=== PATIENT | female | born 1980 | race Caucasian/White ===

== ENCOUNTER 2016-07-19 09:24 | Day surgery (SDC) | payer BC ==
[~2016-07-19 09:24] MED LIST: Lactated Ringers 1,000 ML IV SCH; Lidocaine 1%/Sod Bicarbonate in NS 8.4% 1 ML Syringe IV PRN; Midazolam 1 MG/ML 2 ML SDV ONE; Ondansetron 4 MG/2 ML SDV ONE; Propofol 200 MG/20 ML SDV ONE; Rocuronium 50 MG/5 ML Vial ONE; Sodium Chloride 0.9% 10 ML Syringe FLUSH PRN; fentaNYL 250 MCG/5 ML SDV ONE
[2016-07-19] MEDS ORDERED: Lidocaine 1% with EPINEPHrine 1:100,000 20 ML MDV ONE (09:46)
[2016-07-19] MEDS ORDERED: Sodium Chloride 0.9% 50 ML SDV ONE (09:46)
[2016-07-19] MEDS ORDERED: Bupivacaine 0.5% 30 ML SDV ONE (09:46)
--- NOTE | 2016-07-19 10:08 | PCM.PREANE ---
Preanesthetic Assessment - Anesthesia/Transfusion/Family Hx Anesthesia History: Prior Anesthesia Without Reaction Family History of Anesthesia Reaction: No Transfusion History: No Prior Transfusion(s) - Review of Systems General: No Symptoms Pulmonary: No Symptoms Cardiovascular: No Symptoms Gastrointestinal: No symptoms Neurological: No Symptoms Other: Reports: None - Physical Assessment NPO Status Date: 07/18/16 NPO Status Time: 22:00 Pulse: 80 O2 Sat by Pulse Oximetry: 97 Respiratory Rate: 16 Blood Pressure: 123/50 Temperature: 97.1 F Height: 5 ft 1 in Weight: 103.374 kg ASA Class: 2 Mental Status: Alert & Oriented x3 Airway Class: Mallampati = 1 Dentition: Reports: Normal Dentition Thyro-Mental Finger Breadths: 3 Mouth Opening Finger Breadths: 3 ROM/Head Extension: Full Lungs: Clear to auscultation, Normal respiratory effort Cardiovascular: Regular Rate, Regular Rhythm, No Murmurs - Lab Values: Laboratory Last Values WBC 10.83 K/mm3 (3.98-10.04) H 07/18/16 15:32 RBC 4.66 M/mm3 (3.98-5.22) 07/18/16 15:32 Hgb 13.3 gm/L (11.2-15.7) 07/18/16 15:32 Hct 40.5 % (34.1-44.9) 07/18/16 15:32 MCV 86.9 fl (79.4-94.8) 07/18/16 15:32 MCH 28.5 pg (25.6-32.2) 07/18/16 15:32 MCHC 32.8 g/dl (32.2-35.5) 07/18/16 15:32 RDW Std Deviation 43.0 fL (36.4-46.3) 07/18/16 15:32 Plt Count 257 K/mm3 (182-369) 07/18/16 15:32 MPV 10.8 fl (9.4-12.3) 07/18/16 15:32 Sodium 140 mEq/L (136-145) 07/18/16 15:32 Potassium 3.4 mEq/L (3.5-5.1) L 07/18/16 15:32 Chloride 105 mEq/L (98-107) 07/18/16 15:32 Carbon Dioxide 26 mEq/L (21-32) 07/18/16 15:32 Anion Gap 12.4 (5-15) 07/18/16 15:32 BUN 13 mg/dL (7-18) 07/18/16 15:32 Creatinine 0.8 mg/dL (0.55-1.02) 07/18/16 15:32 Est Cr Clr Drug Dosing TNP 07/18/16 15:32 Estimated GFR (MDRD) > 60 mL/min (>60) 07/18/16 15:32 BUN/Creatinine Ratio 16.3 (14-18) 07/18/16 15:32 Glucose 138 mg/dL (74-106) H 07/18/16 15:32 Calcium 8.6 mg/dL (8.5-10.1) 07/18/16 15:32 Total Bilirubin 0.2 mg/dL (0.2-1.0) 07/18/16 15:32 AST 10 U/L (15-37) L 07/18/16 15:32 ALT 15 U/L (14-59) 07/18/16 15:32 Alkaline Phosphatase 83 U/L (46-116) 07/18/16 15:32 Total Protein 7.0 g/dl (6.4-8.2) 07/18/16 15:32 Albumin 3.5 g/dl (3.4-5.0) 07/18/16 15:32 Globulin 3.5 gm/dL 07/18/16 15:32 Albumin/Globulin Ratio 1.0 (1-2) 07/18/16 15:32 Urine Color Other (Yellow) H 07/18/16 15:32 Urine Appearance Slt cloudy (Clear) H 07/18/16 15:32 Urine pH 5.5 (5.0-8.0) 07/18/16 15:32 Ur Specific [place] > or = 1.030 (1.005-1.030) 07/18/16 15:32 Urine Protein Trace (Negative) H 07/18/16 15:32 Urine Glucose (UA) Negative (Negative) 07/18/16 15:32 Urine Ketones Negative (Negative) 07/18/16 15:32 Urine Occult Blood Trace-lysed (Negative) H 07/18/16 15:32 Urine Nitrite Negative (Negative) 07/18/16 15:32 Urine Bilirubin Negative (Negative) 07/18/16 15:32 Urine Urobilinogen 0.2 (0.2-1.0) 07/18/16 15:32 Ur Leukocyte Esterase 1+ (Negative) H 07/18/16 15:32 Urine HCG, Qual Negative (NEGATIVE) 07/18/16 15:32 Blood Type O NEGATIVE 07/18/16 15:32 Gel Antibody Screen Negative 07/18/16 15:32 - Blood Blood Available: Yes - Acknowledgements Anesthesia Type Planned: General Anesthesia Pt an Appropriate Candidate for the Planned Anesthesia: Yes Alternatives and Risks of Anesthesia Discussed w Pt/Guardian: Yes Pt/Guardian Understands and Agrees with Anesthesia Plan: Yes PreAnesthesia Questionnaire Cardiovascular History: Reports: None Respiratory History: Reports: None Gastrointestinal History: Reports: GERD Psychiatric History: Reports: Anxiety (previously) Endocrine/Metabolic History: Reports: Obesity/BMI 30+ Oncologic (Cancer) History: Reports: None - Past Surgical History HEENT Surgical History: Reports: Tonsillectomy - SUBSTANCE USE Smoking Status *Q: Former Smoker (quit dec 2015) Tobacco Use Within Last Twelve Months: Cigarettes Second Hand Smoke Exposure: No Days Per Week of Alcohol Use: 0 Recreational Drug Use History: No - CURRENT (IN HOUSE) MEDS Current Meds: Current Medications Lactated Ringer's (Ringers, Lactated) 1,000 mls @ 125 mls/hr IV ASDIRECTED LEYLA Stop: 07/19/16 23:00 Lidocaine/Sodium Bicarbonate (Buffered Lidocaine 1% In Ns 8.4%) 0.25 ml IV ONETIME PRN PRN Reason: Prior to IV Start Stop: 07/19/16 18:00 Sodium Chloride (Saline Flush) 10 ml FLUSH ASDIRECTED PRN PRN Reason: Keep Vein Open Stop: 07/19/16 18:00 Discontinued Medications Bupivacaine HCl (Marcaine 0.5%) Confirm Administered Dose 30 ml .ROUTE .STK-MED ONE Stop: 07/19/16 09:47 Fentanyl (Sublimaze) Confirm Administered Dose 250 mcg .ROUTE .STK-MED ONE Stop: 07/19/16 08:51 Lidocaine/Epinephrine (Xylocaine 1% With Epinephrine 1:100,000) Confirm Administered Dose 20 ml .ROUTE .STK-MED ONE Stop: 07/19/16 09:47 Midazolam HCl (Versed 1 Mg/Ml) Confirm Administered Dose 2 mg .ROUTE .STK-MED ONE Stop: 07/19/16 08:51 Ondansetron HCl (Zofran) Confirm Administered Dose 4 mg .ROUTE .STK-MED ONE Stop: 07/19/16 08:50 Propofol (Diprivan 20 Ml) Confirm Administered Dose 200 mg .ROUTE .STK-MED ONE Stop: 07/19/16 08:51 Rocuronium [place] (Zemuron) Confirm Administered Dose 50 mg .ROUTE .STK-MED ONE Stop: 07/19/16 08:50 Sodium Chloride (Normal Saline) Confirm Administered Dose 50 ml .ROUTE .STK-MED ONE Stop: 07/19/16 09:47
[2016-07-19] MEDS ORDERED: ceFAZolin 1 GM Vial ONE (10:31)
[2016-07-19] MEDS ORDERED: Lidocaine 1% 4 ML ONE (10:31)
[2016-07-19] MEDS ORDERED: Labetalol 100 MG/20 ML MDV ONE (11:03)
[2016-07-19] MEDS ORDERED: HYDROmorphone 1 MG/ML Syringe ONE (11:18)
[2016-07-19] MEDS ORDERED: Lactated Ringers 1,000 ML ONE (11:20)
[2016-07-19] MEDS ORDERED: Dexamethasone 4 MG/ML 5 ML MDV ONE (11:26)
[2016-07-19] MEDS ORDERED: Neostigmine Methylsulfate 1 MG/ML 5 ML Syringe ONE (11:50)
[2016-07-19] MEDS ORDERED: Ondansetron 4 MG/2 ML SDV IVPUSH PRN (11:53)
[2016-07-19] MEDS ORDERED: Acetaminophen/oxyCODONE 325-5 MG Tab PO PRN (11:53)
[2016-07-19] MEDS ORDERED: Ketorolac 30 MG/ML SDV IVPUSH PRN (11:59)
--- NOTE | 2016-07-19 12:00 | PCM.OPNOTE ---
- General Post-Op/Procedure Note Date of Surgery/Procedure: 07/19/16 Operative Procedure(s): Total vaginal hysterectomy with bilateral salpingectomy Findings: Ovaries appeared functional small cyst on the right ovary-benign. Patient had Essure coils in each fallopian tube. The fallopian tubes bilaterally were within normal limits and were completely removed ensuring removal of the entire Essure coils. Pre Op Diagnosis: 1. Menorrhagia. 2. Dysmenorrhea. 3. Pelvic pain Post-Op Diagnosis: Same Anesthesia Technique: General ET tube, Local Other Anesthesia Type: Lidocaine quarter percent with epinephrine-locally and cervix-20 cc total Primary Surgeon: Phill Hummel Secondary Surgeon: Atif Varghese Anesthesia Provider: Benito Segundo Pathology: Uterus cervix and tubes in one specimen Fluid Replacement, Intraop: 2,200 (Crystalloid) EBL in mLs: 250 Complications: None Condition: Good Free Text/Narrative:: Surgery duration: 36 minutes Complications: None Procedure:The patient was taken to the operating room. She was placed in supine position on the operating table. General endotracheal anesthesia and was accomplished. Patient was given Ancef 2 g IV preop for infection prophylaxis and had sequential compression stockings in place for DVT prophylaxis. After positioning, prep and drape were accomplished in a routine fashion. Surgery was then performed. Sterile weighted speculum was placed in the vagina and cervix was visualized. Cervix was injected with lidocaine quarter percent with epinephrine-20 cc total. A full circumference incision was made through the cervical epithelium and cervical epithelium was pushed well back off the cervix. Posterior cul-de-sac was entered sharply. The left uterosacral ligament was then crossclamped with a LigaSure vessel closure system. This is developed in routine fashion. Same was done on the right side. Anterior cul-de-sac was then entered without problems. The uterine vasculature, remainder of cardinal ligament, broad ligament and eventually upper broad ligament pedicles were then developed using LigaSure vessel closure system. The fallopian tube insertion was crossclamped with a Maria Luz clamp. This pedicle was cut. At this time the fallopian tube on the left side was isolated and using LigaSure vessel closure system meso-salpinx was cauterized. This effectively removed the fallopian tube intact, leaving the ovary in place. Same was then done on the side. Care was taken to not use the LigaSure vessel closure device in the area of the Essure sections of the fallopian tubes area. The posterior cuff was then run from approximately the 2:00 to the 10:00 position posteriorly with a running lock suture of 0 Monocryl for hemostasis reasons. Hemostasis was confirmed at this time. Sponge instrument and needle counts are correct. The pursestring suture of 0 Monocryl was then used to close the peritoneal cavity. The vaginal cuff was closed with a running locked suture from right side to left side with 0 Monocryl suture. Hemostasis confirmed. Sponge, instrument and needle counts were correct. The patient was returned to supine position and awakened from general endotracheal anesthesia. She tolerated the procedure well and left the operating room in good condition.
--- NOTE | 2016-07-19 12:01 | PCM.POSTAN ---
POST ANESTHESIA ASSESSMENT - MENTAL STATUS Mental Status: alert, oriented - VITAL SIGNS Pulse Rate: 104 SaO2: 100 Resp Rate: 9 Blood Pressure: 130/74 Temperature: 37.2 C - RESPIRATORY Respiratory Status: respiratory rate WNL, airway patent, O2 saturation stable - CARDIOVASCULAR CV Status: pulse rate WNL, blood pressure stable - GASTROINTESTINAL GI Status: no symptoms - PAIN Pain Score: 0 - POST OP HYDRATION Hydration Status: adequate & stable - OBSERVATIONS Free Text/Narrative:: no anesthesia complications noted
[2016-07-19] MEDS: fentaNYL 100 MCG/2 ML SDV IVPUSH PRN ×2 (12:15→12:30)
[2016-07-19] MEDS ORDERED: Scopolamine 1.5 MG Transdermal Patch TOP ONE (14:30)
[2016-07-19 15:44] VITALS: BP 123/81
== END 2016-07-19 15:50 | disposition home or self-care (01) ==
LOC: JD.SDS 09:24
PROVIDERS: ATTEND Obstetrics & Gynecology
DX: N72 Inflammatory disease of cervix uteri (principal); N84.0 Polyp of corpus uteri; F41.9 Anxiety disorder, unspecified; Z68.41 Body mass index [BMI] 40.0-44.9, adult; Z88.8 Allergy status to other drugs, medicaments and biological substances; Z90.710 Acquired absence of both cervix and uterus; Z98.890 Other specified postprocedural states; Z78.9 Other specified health status; Z87.891 Personal history of nicotine dependence
CPT/HCPCS: 36415; 58262; 80053; 81003; 81025; 85027; 86850; 86900; 86901; 88307; A9270; J0690; J1100; J1170; J1885; J2250; J2405; J2710; J3010; J7120; 00944; J2704

== ENCOUNTER 2018-12-12 09:28 | Day surgery (SDC) | payer BC ==
[~2018-12-12 09:28] MED LIST changes: +Dexamethasone 4 MG/ML 5 ML MDV ONE; +Ketorolac 30 MG/ML SDV ONE; +Lactated Ringers 1,000 ML ONE; +Lidocaine 1% 6 ML ONE; +Lidocaine 1%/Sod Bicarbonate in NS 8.4% 1 ML Syringe IDERM PRN; -Lidocaine 1%/Sod Bicarbonate in NS 8.4% 1 ML Syringe IV PRN; -Rocuronium 50 MG/5 ML Vial ONE; +ceFAZolin 1 GM Vial ONE
--- NOTE | 2018-12-12 10:13 | PCM.PREANE ---
Preanesthetic Assessment - Anesthesia/Transfusion/Family Hx Anesthesia History: Prior Anesthesia Without Reaction Family History of Anesthesia Reaction: No Transfusion History: No Prior Transfusion(s) - Review of Systems General: No Symptoms Pulmonary: No Symptoms Cardiovascular: No Symptoms Gastrointestinal: No Symptoms Neurological: No Symptoms Other: Reports: None - Physical Assessment NPO Status Date: 12/11/18 NPO Status Time: 20:00 ASA Class: 3 Mental Status: Alert & Oriented x3 Airway Class: Mallampati = 2 Thyro-Mental Finger Breadths: 3 Mouth Opening Finger Breadths: 3 ROM/Head Extension: Full Lungs: Clear to Auscultation, Normal Respiratory Effort Cardiovascular: Regular Rate, Regular Rhythm - Allergies Allergies/Adverse Reactions: Allergies Allergy/AdvReac Type Severity Reaction Status Date / Time aspirin Allergy Other Verified 12/11/18 15:43 - Acknowledgements Anesthesia Type Planned: General Anesthesia Pt an Appropriate Candidate for the Planned Anesthesia: Yes Alternatives and Risks of Anesthesia Discussed w Pt/Guardian: Yes Pt/Guardian Understands and Agrees with Anesthesia Plan: Yes PreAnesthesia Questionnaire HEENT History: Reports: Allergic Rhinitis Cardiovascular History: Reports: None Respiratory History: Reports: Sleep Apnea (CPAP) Gastrointestinal History: Reports: Chronic Diarrhea, GERD, Irritable Bowel Syndrome, Other (See Below) Other Gastrointestinal History: dysphagia, umbilical hernia Genitourinary History: Reports: UTI, Recurrent REGULATORY AND COMPLIANCE TECHNICIAN History: Reports: Other (See Below) Other OB/BYN History: dysmenorrhea, menorrhagia, , hysteroscopy Musculoskeletal History: Reports: Neck Pain, Chronic (neck pain-FROM noted) Neurological History: Reports: None Psychiatric History: Reports: Anxiety, Depression Endocrine/Metabolic History: Reports: Obesity/BMI 30+ Hematologic History: Reports: None Immunologic History: Reports: None Oncologic (Cancer) History: Reports: None Dermatologic History: Reports: None - Past Surgical History Head Surgeries/Procedures: Reports: None HEENT Surgical History: Reports: Tonsillectomy Cardiovascular Surgical History: Reports: None Respiratory Surgical History: Reports: None GI Surgical History: Reports: None Female Surgical History: Reports: Hysterectomy Male Surgical History: Reports: None Endocrine Surgical History: Reports: None Neurological Surgical History: Reports: None Musculoskeletal Surgical History: Reports: None Oncologic Surgical History: Reports: None Dermatological Surgical History: Reports: None - SUBSTANCE USE Smoking Status *Q: Former Smoker Recreational Drug Use History: No - HOME MEDS Home Medications: Home Meds Albuterol Sulfate [Albuterol Sulfate Hfa] 1 - 2 puff INH Q4H PRN 12/11/18 [ History] Cholecalciferol (Vitamin D3) [Vitamin D3] 1,000 unit PO DAILY 12/11/18 [History] Citalopram Hydrobromide [Celexa] 10 mg PO DAILY 12/11/18 [History] Cyanocobalamin (Vitamin B-12) [Vitamin B-12] 1,000 mcg PO DAILY 12/11/18 [ History] - CURRENT (IN HOUSE) MEDS Current Meds: Current Medications Lactated Ringer's (Ringers, Lactated) 1,000 mls @ 125 mls/hr IV ASDIRECTED LEYLA Stop: 12/12/18 23:00 Lidocaine/Sodium Bicarbonate (Buffered Lidocaine 1% In Ns 8.4%) 0.25 ml IDERM ONETIME PRN PRN Reason: Prior to IV Start Stop: 12/12/18 18:00 Sodium Chloride (Saline Flush) 10 ml FLUSH ASDIRECTED PRN PRN Reason: Keep Vein Open Stop: 12/12/18 18:00 Discontinued Medications Cefazolin Sodium (Ancef) Confirm Administered Dose 2 gm .ROUTE .STK-MED ONE Stop: 12/12/18 09:26 Dexamethasone (Dexamethasone) Confirm Administered Dose 20 mg .ROUTE .STK-MED ONE Stop: 12/12/18 09:26 Fentanyl (Sublimaze) Confirm Administered Dose 250 mcg .ROUTE .STK-MED ONE Stop: 12/12/18 09:27 Lidocaine HCl (Xylocaine-Mpf 1%) Confirm Administered Dose 6 mls @ as directed .ROUTE .STK-MED ONE Stop: 12/12/18 09:26 Lactated Ringer's (Ringers, Lactated) Confirm Administered Dose 1,000 mls @ as directed .ROUTE .STK-MED ONE Stop: 12/12/18 09:26 Ketorolac Tromethamine (Toradol) Confirm Administered Dose 30 mg .ROUTE .STK- MED ONE Stop: 12/12/18 09:26 Midazolam HCl (Versed 1 Mg/Ml) Confirm Administered Dose 2 mg .ROUTE .STK-MED ONE Stop: 12/12/18 09:27 Ondansetron HCl (Zofran) Confirm Administered Dose 4 mg .ROUTE .STK-MED ONE Stop: 12/12/18 09:26 Propofol (Diprivan 20 Ml) Confirm Administered Dose 200 mg .ROUTE .STK-MED ONE Stop: 12/12/18 09:28
[2018-12-12] MEDS ORDERED: Rocuronium 50 MG/5 ML Vial ONE (11:10)
[2018-12-12] MEDS ORDERED: Succinylcholine/Normal Saline 100 MG/5 ML Syringe ONE ×2 (11:10→11:52)
[2018-12-12] MEDS ORDERED: Propofol 200 MG/20 ML SDV ONE (11:11)
[2018-12-12] MEDS ORDERED: Bupivacaine 0.5% 30 ML SDV ONE (12:01)
[2018-12-12] MEDS ORDERED: Ketamine 500 mg/10 ML MDV ONE (12:23)
[2018-12-12] MEDS ORDERED: diphenhydrAMINE 50 MG/ML SDV IVPUSH PRN (12:25)
[2018-12-12] MEDS ORDERED: Ondansetron 4 MG/2 ML SDV IVPUSH PRN (12:25)
[2018-12-12] MEDS ORDERED: fentaNYL 100 MCG/2 ML SDV IVPUSH PRN (12:25)
[2018-12-12] MEDS ORDERED: HYDROmorphone 0.5 MG/0.5 ML Syringe IVPUSH PRN (12:25)
[2018-12-12] MEDS ORDERED: Neostigmine Methylsulfate 1 MG/ML 5 ML Syringe ONE (12:29)
--- NOTE | 2018-12-12 13:03 | PCM.POSTAN ---
POST ANESTHESIA ASSESSMENT - MENTAL STATUS Mental Status: Alert, Oriented - VITAL SIGNS Vital Signs: Last Vital Signs 1251 86 23 97.8F 98/50 97% - RESPIRATORY Respiratory Status: Respiratory Rate WNL, Airway Patent, O2 Saturation Stable, Supplemental Oxygen - CARDIOVASCULAR CV Status: Pulse Rate WNL, Blood Pressure Stable - GASTROINTESTINAL GI Status: No Symptoms - PAIN Pain Score: 0 - POST OP HYDRATION Hydration Status: Adequate & Stable
--- NOTE | 2018-12-12 13:45 | PCM48HPAN ---
Post Anesthesia Note - EVALUATION WITHIN 48HRS OF ANESTHETIC Vital Signs in Normal Range: Yes Patient Participated in Evaluation: Yes Respiratory Function Stable: Yes Airway Patent: Yes Cardiovascular Function Stable: Yes Hydration Status Stable: Yes Pain Control Satisfactory: Yes Nausea and Vomiting Control Satisfactory: Yes Mental Status Recovered: Yes Vital Signs: Last Vital Signs Temp 97.8 F 12/12/18 12:51 Pulse 86 12/12/18 12:51 Resp 12 12/12/18 13:30 BP 105/58 L 12/12/18 13:30 Pulse Ox 97 12/12/18 13:38
[2018-12-12 15:08] VITALS: BP 105/68; PULSE 76
--- NOTE | 2018-12-12 19:33 | OR ---
DATE OF OPERATION: 12/12/2018 SURGEON: Manuel Anton MD PREOPERATIVE DIAGNOSIS: Incarcerated umbilical hernia. POSTOPERATIVE DIAGNOSIS: Incarcerated umbilical hernia. OPERATION PERFORMED: Open mesh repair of incarcerated umbilical hernia. ANESTHESIA: General. COMPLICATIONS: None. ESTIMATED BLOOD LOSS: Less than 1 mL. DISPOSITION: Stable at the end of the procedure. INDICATION: The patient is a 38-year-old female who presented to my office with symptoms of irritable bowel syndrome. On physical exam, she was noted to have an incarcerated umbilical hernia which was exquisitely tender. I recommended she have it repaired to prevent strangulation of bowel in the future. She was fully informed of the major risks, benefits, and alternatives. The risks include, but are not limited to perforation of the bowel, bleeding, risks of anesthesia, possibility of further surgery, mesh complications, mesh migration as well as many others, and she gave informed consent. DESCRIPTION OF PROCEDURE: The patient was brought to the operating room and placed in supine position on the operating table. She was given general anesthesia. The abdomen was prepped and draped in usual sterile fashion. The infraumbilical location was infused with 0.5% Marcaine for local anesthesia. I then used a #15 blade to open the skin. I dissected down to the anterior fascia. I identified the plane between the hernia sac and the umbilical stalk. This was transected with Bovie cautery. The hernia sac was left intact. I was able to reduce the hernia sac and dissected between the peritoneum and the posterior abdominal wall with my finger to allow for the placement of the mesh without exposure to the peritoneal cavity. A 4.3 cm Ventralex mesh was sutured to the anterior abdominal wall in 4 quadrants and this was dropped into the peritoneal cavity. Each of the sutures were secured making the mesh completely flat against the anterior abdominal wall. At this point, a [id number] suture was utilized to reapproximate the fascial defect. I used a 2-layer approach for this in a [id number] fashion. All these sutures were passed using 0 PDS suture material on a CT-1 needle with great care not to enter the peritoneal cavity. At this point, umbilical stalk was reapproximated at the midline with 0 PDS suture material to reapproximate to her preoperative condition cosmetically. I then ran a 4-0 Monocryl suture material to reapproximate the skin. Dermabond was applied for sterile barrier. She had no complications and tolerated the procedure well. She was awakened from anesthesia and moved to recovery in stable condition. ANGELITA /[id number]
--- NOTE | 2018-12-12 19:41 | OR ---
DATE OF OPERATION: 12/12/2018 SURGEON: Manuel Anton MD PREOPERATIVE DIAGNOSIS: Cervical lymphadenopathy, questionable lymphoma. POSTOPERATIVE DIAGNOSIS: Cervical lymphadenopathy, questionable lymphoma. OPERATION PERFORMED: DICTATION ENDS HERE ANESTHESIA: ESTIMATED BLOOD LOSS: DESCRIPTION OF PROCEDURE: MMODAL /[id number]
== END 2018-12-12 14:46 | disposition home or self-care (01) ==
LOC: JD.SDS 09:28
PROVIDERS: ATTEND Surgery
DX: K42.0 Umbilical hernia with obstruction, without gangrene (principal); G47.33 Obstructive sleep apnea (adult) (pediatric); K21.9 Gastro-esophageal reflux disease without esophagitis; F32.9 Major depressive disorder, single episode, unspecified; E66.01 Morbid (severe) obesity due to excess calories; Z68.42 Body mass index [BMI] 45.0-49.9, adult; Z88.6 Allergy status to analgesic agent; Z79.899 Other long term (current) drug therapy; Z87.891 Personal history of nicotine dependence; Z99.89 Dependence on other enabling machines and devices
CPT/HCPCS: 49587; C1781; J0330; J0690; J1100; J1170; J1885; J2001; J2250; J2405; J2704; J2710; J3010; J3490; J7120

== ENCOUNTER 2023-08-11 22:51 | Emergency (ER) | payer BC, OTHER ==
[2023-08-11 23:20] LABS: BASOPHILS ABSOLUTE AUTO 0.1 K/mm3 (0.0-0.2); BASOPHILS PERCENT AUTO 0.8 % (0.0-1.0); EOSINOPHILS ABSOLUTE AUTO 0.3 K/mm3 (0.0-0.4); EOSINOPHILS PERCENT AUTO 3.1 % (0.0-6.0); HEMATOCRIT 45.6 % (37.0-47.0); HEMOGLOBIN 14.8 gm/dl (12.0-16.0); IMMATURE GRAN ABSOLUTE AUTO 0.02 K/mm3 (0.00-0.05); IMMATURE GRAN PERCENT AUTO 0.2 % (0.0-0.4); LYMPHOCYTES ABSOLUTE AUTO 1.5 K/mm3 (1.0-4.8); MEAN CORPUSCULAR HEMOGLOBIN 28.3 pg (28.0-32.0); MEAN CORPUSCULAR HGB CONC 32.5 g/dl (32.0-36.0); MEAN CORPUSCULAR VOLUME 87.2 fl (83.0-99.0); MEAN PLATELET VOLUME 10.6 fl (9.4-12.3); MONOCYTES ABSOLUTE AUTO 0.6 K/mm3 (0.0-0.8); MONOCYTES PERCENT AUTO 6.6 % (0.0-8.0); NEUTROPHILS ABSOLUTE AUTO 6.4 K/mm3 (1.8-7.7); NEUTROPHILS PERCENT AUTO 72.3 % (41.0-71.0); PLATELET COUNT,PLT 252 K/mm3 (150-400); RED BLOOD CELL COUNT 5.23 M/mm3 (4.10-5.30); WHITE BLOOD CELL COUNT,WBC 8.84 K/mm3 (3.9-11.3)
[2023-08-11] MEDS: Sodium Chloride 0.9% 1,000 ML IV ONE (23:28)
[2023-08-11 23:43] LABS: A/G RATIO 1.1 (1-2); ALANINE AMINOTRANSFERASE,ALT 22 U/L (14-59); ALBUMIN 3.8 g/dl (3.4-5.0); ALKALINE PHOSPHATASE 77 U/L (46-116); ANION GAP 11.4 (5-15); ASPARTATE AMNIOTRANSFERASE,AST 13 U/L (15-37); BILIRUBIN TOTAL 0.3 mg/dL (0.2-1.0); BLOOD UREA NITROGEN,BUN 11 mg/dL (7-18); CALCIUM 9.1 mg/dL (8.5-10.1); CARBON DIOXIDE,CO2 28 mEq/L (21-32); CHLORIDE,CL 106 mEq/L (98-107); ESTIMATED GFR 72 mL/min (>60); GLUCOSE RANDOM 110 mg/dL (70-99); POTASSIUM,K 3.4 mEq/L (3.5-5.1); PROTEIN TOTAL,TP 7.2 g/dl (6.4-8.2); SODIUM,NA 142 mEq/L (136-145)
[2023-08-11 23:45] LABS: TROPONIN I HIGH SENSITIVITY < 4 pg/mL (<=51)
[2023-08-12 02:59] VITALS: BP 105/65; PULSE 88
== END 2023-08-12 02:07 | disposition home or self-care (01) ==
LOC: JD.ED 22:51
DX: F43.20 Adjustment disorder, unspecified (principal); R07.89 Other chest pain; K21.9 Gastro-esophageal reflux disease without esophagitis; E66.9 Obesity, unspecified; Z88.6 Allergy status to analgesic agent; Z79.899 Other long term (current) drug therapy; Z68.41 Body mass index [BMI] 40.0-44.9, adult
CPT/HCPCS: 36415; 80053; 84484; 84703; 85025; 93005; 96360; 99285-25; J7030